=== PATIENT | female | born 1995 | race Caucasian/White ===

== ENCOUNTER 2018-10-10 04:48 | Inpatient (IN) ==
[2018-10-10] MEDS ORDERED: RINGER'S SOLUTION,LACTATED 1,000 ML IV PRN ×2 (05:00)
[2018-10-10] MEDS ORDERED: OXYTOCIN 20 UNITS in RINGER'S SOLUTION,LACTATED 1,000 ML IV ONE (05:00)
[2018-10-10] MEDS ORDERED: ceFAZolin SODIUM/DEXTROSE,ISO 2 GM/50 ML BAG IV ONE (05:00)
[2018-10-10 05:26] LABS: Cocaine Ur Negative (NEGATIVE); Urine Barbiturate Negative (NEGATIVE); Urine Benzodiazepines Negative (NEGATIVE); Urine Opiates Negative (NEGATIVE); Urine PCP Negative (NEGATIVE); Urine THC Negative (NEGATIVE)
--- NOTE | 2018-10-10 07:27 | ANES ---
Anesthesia Pre Procedure Eval Vitals/Labs: Last Vital Signs Temp 36.1 C 10/10/18 05:00 Pulse 100 10/10/18 05:00 Resp 16 10/10/18 05:00 BP 106/61 10/10/18 05:00 Pulse Ox 98 10/10/18 05:00 HOME MEDICATIONS vitamin,calcium,jriiyazd-hhtx-qmcso acid tablet 1 tab PO DAILY 03/03/18 [Last Taken 10/09/18] calcium carbonate 200 mg calcium (500 mg) chewable tablet 200 mg PO QID tab 07/30/18 [Last Taken 10/09/18] ferrous sulfate 325 mg (65 mg iron) tablet 325 mg PO DAILY 09/10/18 [Last Taken 10/09/18] hydrocodone 5 mg-acetaminophen 325 mg tablet 1 tab PO Q6H PRN #14 tab 10/08/18 [Last Taken Unknown] Allergies/Adverse Reactions: Allergies Allergy/AdvReac Type Severity Reaction Status Date / Time hydromorphone [From Dilaudid] AdvReac headache, Verified 10/10/18 05:01 vomiting - Planned Procedure Planned Procedure: repeat Section Medication List Reviewed:: Yes Allergies Verified: Yes Medical History (Updated 05/01/18 @ 08:23 by Pearl Alvarenga LPN) Pancreatitis Onset Date: ~11/2017 Surgical History (Updated 03/03/18 @ 08:25 by Tiana Hayden LPN) History of section Onset Date: ~10/09/17 distress History of endoscopy stent placed Hx of cholecystectomy Onset Date: ~11/2017 Family History (Updated 03/03/18 @ 08:27 by Tiana Hayden LPN) Grandmother Cancer cervical CA-hysterectomy Myocardial infarction Mother Alive and well Father Diabetes diet controlled - Family Anesthesia History Family History:: no untoward family reactions to anesthesia - Airway/Neck/Teeth Within Normal Limits:: Yes Teeth Condition: intact Denture Type: None Neck Exam: full range of motion Mallampatti Score: 2 Thyromental (T-M) distance: > 6 cm Mandibulo Hyoid distance: > 3 cm - Respiratory Respiratory Physical: lungs clear Smoking Status: Current every day smoker Discussed smoking cessation including day of surgery: Yes - Cardiovascular Tolerate Activity: Good Heart Sounds: S1 & S2, Regular - Anesthesia Assessment and Plan ASA Class: PS, II Anesthesia Type Plan: Spinal - TAP block for postop an analgesia Planned difficult intubation/equipment available: No
[2018-10-10] MEDS ORDERED: RINGER'S SOLUTION,LACTATED 1,000 ML IV ONE (08:47)
[2018-10-10] MEDS ORDERED: SENNOSIDES 8.6 MG TABLET PO PRN (08:47)
[2018-10-10] MEDS ORDERED: BISACODYL 10 MG SUPP.RECT RC PRN (08:47)
[2018-10-10] MEDS ORDERED: ONDANSETRON HCL/PF 2 MG/ML VIAL IV PRN (08:47)
[2018-10-10] MEDS ORDERED: diphenhydrAMINE HCL 25 MG CAPSULE PO PRN (08:47)
--- NOTE | 2018-10-10 09:00 | OR ---
Operative Report - Dictated Report Narrative: Date of delivery: 10/10/2018 Time of delivery: 08 Gender: male APGARS: 9 weight: 3370 grams Procedure: repeat delivery Surgeon: Dr. Marte Description of the procedure: The patient was taken to the operating room where spinal anesthesia was found to be adequate. She was then prepped and draped in the lithotomy position in the standard surgical fashion. A Pfannestiel skin incision was made. The incision was carried through the subcutaneous tissue. The fascia was incised in the midline. The fascial incision was extended laterally. The fascia was dissected from the underlying rectus muscles. The omentum was seen after the fascia and prior to entering the peritoneum consistent with an incisional hernia. The peritoneum was entered bluntly and sharply. A large Gigi retractor was placed. The lower uterine segment was incised in a transverse fashion. The lower uterine segment appeared somewhat thin but not paper thin. The uterine incision was extended bluntly. The amniotic fluid was clear. The head was delivered atraumatically as was the rest of the body. The cord was clamped and cut and the infant was handed off to the attending pediatric staff. The placenta was removed by expression. The uterus was cleared of all clots and debris. The uterine incision was closed with 0-vicryl in a running locking fashion. Hemostasis around the bladder area was obtained as well as the corners of the uterine incision. The Gigi retractor was removed. The uterine incision was reinspected and appeared hemostatic. The rectus muscles and fascia were inspected and appeared hemostatic. The fascia was closed with 1-0 vicryl. The subcutaneous tissue was irrigated and made hemostatic. The skin was closed with 3-0 monocryl on a Tan needle. Dermabond was placed over the incision. All sponge, lap, and needle counts were correct. The patient tolerated the procedure well. She was transferred to the recovery room in stable condition. EBL: 600 mL Complications: none Specimens: none Definition: * The number of deliveries resulting in a live the patient experienced prior to current hospitalization * The previous delivery of live twins or any live multiple gestation is considered one live event. *If primagravida or nulliparous is documented select zero for the number of previous live births. Live births: 1
--- NOTE | 2018-10-10 09:17 | ANES ---
Post Anesthesia Discharge - Transfer of Care Transfer of Care handoff given to nurse: Yes - Discharge from PACU Discharge from PACU when meets criteria: Yes
--- NOTE | 2018-10-10 09:18 | ANES ---
Post Anesthesia Assessment - Vital Signs Vitals: Last Vital Signs Temp 36.4 C 10/10/18 09:10 Pulse 85 10/10/18 09:10 Resp 16 10/10/18 09:10 BP 102/62 10/10/18 09:10 Pulse Ox 96 10/10/18 09:10 Airway Patency: Normal - Mental Status Level Of Consciousness: Awake - Pain Level Pain Score: 4 - N/V Assessment Nausea/Vomiting Presence: None Dehydration:: No
[2018-10-10] MEDS: KETOROLAC TROMETHAMINE 30 MG/ML VIAL IV PRN ×2 (09:29→15:36)
[2018-10-10] MEDS: DOCUSATE SODIUM 100 MG CAPSULE PO SCH ×2 (10:15→20:23)
[2018-10-10] MEDS: HYDROcodone/ACETAMINOPHEN 1 EACH TABLET PO PRN ×4 (11:02→21:44)
[2018-10-10] MEDS: HYDROCORTISONE 30 APPL TUBE TP PRN (18:58)
[2018-10-10] MEDS: metroNIDAZOLE 500 MG TABLET PO SCH (20:22)
[2018-10-10] MEDS: IBUPROFEN 800 MG TABLET PO PRN (21:44)
[2018-10-11] MEDS: HYDROcodone/ACETAMINOPHEN 1 EACH TABLET PO PRN ×5 (01:17→20:24)
[2018-10-11] MEDS: metroNIDAZOLE 500 MG TABLET PO SCH ×2 (09:54→20:52)
[2018-10-11] MEDS: HYDROCORTISONE 30 APPL TUBE TP PRN (09:54)
[2018-10-11] MEDS: IBUPROFEN 800 MG TABLET PO PRN ×2 (09:56→20:23)
[2018-10-11] MEDS: DOCUSATE SODIUM 100 MG CAPSULE PO SCH ×2 (09:56→20:21)
--- NOTE | 2018-10-11 11:34 | PN ---
Subjective - Date and Time Seen Date: 10/11/18 Time: 11:34 Objective - Vitals Vitals: Last Vital Signs Temp 36.1 C 10/11/18 10:23 Pulse 83 10/11/18 10:23 Resp 16 10/11/18 10:23 BP 105/62 10/11/18 10:23 Pulse Ox 97 10/11/18 10:23 Patient denies complaints. Tolerating regular diet. Ambulating without difficulty. Pain well controlled. Lochia wnl. Abdomen - soft, appropriately tender Incision - clean, dry, intact Uterus - firm, at umbilicus -1 No calf tenderness Impression: Post op day #1 s/p repeat section. Plan: Continue routine post-operative/ care Cauti Physician Documentation - Urinary Catheter Management Urethral (Garcia) Date of Insertion: 10/10/18 Time of Insertion: 07:50 Date of Removal: 10/10/18 Time of Removal: 21:40
[2018-10-11] MEDS: SIMETHICONE 80 MG TAB.CHEW PO PRN ×2 (18:52→23:53)
[2018-10-12] MEDS: SIMETHICONE 80 MG TAB.CHEW PO PRN ×2 (04:26→08:45)
[2018-10-12 08:10] VITALS: BP 101/51
[2018-10-12] MEDS: DOCUSATE SODIUM 100 MG CAPSULE PO SCH (08:45)
[2018-10-12] MEDS ORDERED: metroNIDAZOLE 500 MG TABLET PO ONE (09:22)
--- NOTE | 2018-10-12 09:27 | PN ---
Subjective - Date and Time Seen Date: 10/12/18 Time: 09:25 Objective - Vitals Vitals: Last Vital Signs Temp 36.7 C 10/12/18 08:00 Pulse 77 10/12/18 08:00 Resp 18 10/12/18 08:00 BP 101/51 10/12/18 08:00 Pulse Ox 97 10/12/18 08:00 Patient denies complaints. Ambulating well. Tolerating regular diet. Pain well controlled. Patient desires early discharge. Lochia wnl. Abdomen - soft, appropriately tender Incision - clean, dry, intact Uterus - firm, at umbilicus -2 No calf tenderness Impression: Post op day #2 s/p repeat section. Bacterial vaginosis - being treated prior to admission. We'll give 1 time dose so patient does not have to continue taking medication per her request. Plan: Continue routine post-operative/ care. Flagyl 2 g by mouth 1. Discharge to home with routine discharge instructions. Cauti Physician Documentation - Urinary Catheter Management Urethral (Garcia) Date of Insertion: 10/10/18 Time of Insertion: 07:50 Date of Removal: 10/10/18 Time of Removal: 21:40
[2018-10-12] MEDS: IBUPROFEN 800 MG TABLET PO PRN (10:47)
== END 2018-10-12 16:14 | disposition home or self-care (01) | DRG 786 ==
LOC: OB 04:48
PROVIDERS: ADMIT Obstetrics & Gynecology; ATTEND Obstetrics & Gynecology
CPT/HCPCS: 59025; 80307; 86850